=== PATIENT | female | born 1985 | race Asian ===

== ENCOUNTER → 2021-12-05 13:34 | Outpatient (BNVA) | payer OTHER, SELFPAY | PROVIDERS: Visit Provider Advanced Practice Midwife | DX: Z13.89 Encounter for screening for other disorder (principal) ==

== ENCOUNTER → 2022-01-03 10:10 | Outpatient (BNVA) | payer OTHER, SELFPAY | PROVIDERS: Visit Provider Surgery | DX: K64.9 Unspecified hemorrhoids (principal) | CPT/HCPCS: 46600 ==

== ENCOUNTER 2022-02-16 08:03 | Day surgery (SDC) | payer OTHER, SELFPAY ==
--- NOTE | 2022-02-15 09:15 | HO.ANESPROP2 ---
Documented by User: Coral Salazar NP 02/15/22 09:16 HPI - Anesthesia Eval Consult details Narrative: 37yo F for EUA,Hemorrhoidectomy PMFSH Active Problems Active Problems: All Active Problems (Updated 01/03/22 @ 10:56 by Antonio Buitrago MD) Bleeding hemorrhoids (Acute) Rectal bleeding (Acute) Hemorrhoids (Acute) Encounter for annual routine gynecological examination (Acute) Past Medical History Medical History Bleeding hemorrhoids Rectal bleeding Surgical History Surgical History (Updated 02/16/22 @ 09:09 by Renetta Cheney RN) [place] teeth extracted Social History Social History Alcohol intake: current Alcohol intake frequency: holidays/special occasions only Patient Tobacco Use Status: Never used Tobacco Advance Directives: No Advance Directives Information Provided: Yes Sexual orientation: Straight/Heterosexual Gender identity: Female Meds Allergies Allergy/AdvReac Type Severity Reaction Status Date / Time nickel [NICKEL] Allergy Unknown RASH Verified 02/16/22 08:34 Perineal suture Allergy Unknown infection Uncoded 02/16/22 08:34 vicrol suture Allergy Unknown infection Uncoded 02/16/22 08:34 Home Medications Medication Instructions Recorded Confirmed Last Taken Type multivitamin 1 tab PO DAILY 12/05/21 02/09/22 Unknown History Exam Exam Date and Time: February 15, 2022 0915 Assessment and Plan Assessment Anesthesia Assessment: Chart Reviewed Documented by User: Tutu Avila MD 02/16/22 10:04 PMFSH Past Medical History Medical History Bleeding hemorrhoids Rectal bleeding Patient : No Family History Family history of problems with anesthesia: No Surgical History Surgical History (Updated 02/16/22 @ 09:09 by Renetta Cheney RN) [place] teeth extracted History of Problems with Anesthesia: No Social History Social History Alcohol intake: current Alcohol intake frequency: holidays/special occasions only Patient Tobacco Use Status: Never used Tobacco Advance Directives: No Advance Directives Information Provided: Yes Sexual orientation: Straight/Heterosexual Gender identity: Female Meds Allergies Allergy/AdvReac Type Severity Reaction Status Date / Time nickel [NICKEL] Allergy Unknown RASH Verified 02/16/22 08:34 Perineal suture Allergy Unknown infection Uncoded 02/16/22 08:34 vicrol suture Allergy Unknown infection Uncoded 02/16/22 08:34 Home Medications Medication Instructions Recorded Confirmed Last Taken Type multivitamin 1 tab PO DAILY 12/05/21 02/09/22 Unknown History Exam Airway Mallampati Class: I TM Dist: >3cm Neck ROM: Full Loose/Missing/Broken Teeth: No Heart: ok Lungs: ok Assessment and Plan Final Anesthetic Review Family History of Problems with Anesthesia: No History of Problems with Anesthesia: No NPO: Yes ASA Class: I Final Preanesthetic Review: No Changes in Pt Med Stat, Meds/Allgs Chart Reviewed, Consent Obtained/Reviewed and Anes Risks/Benef Reviewed Patient Risk: Low Procedure Risk: Low Anesthetic Plan Anesthetic Plan: GA and Agree w/ Assess. and Plan Disposition: Standard PACU
[2022-02-16 08:33] VITALS: BMI 27.0
[2022-02-16 08:40] LABS: UPreg QC Valid YES; Urine Pregnancy NEGATIVE (NEGATIVE)
[2022-02-16 08:45] VITALS: BP 123/65; PULSE 86; RESP 18; TEMP 36.2; O2SAT 97
--- NOTE | 2022-02-16 08:50 | PC.NURSE ---
pt. stated returned from [facility] [address] dempsey. stated no covid swab needed. pt did not [place]
[2022-02-16] MEDS: Lactated Ringers 1,000 ML 100 ML IVCONT (08:51)
--- NOTE | 2022-02-16 09:51 | P.HPSUR_ITS ---
Pre-Procedural Eval Section A Date of Service: 02/16/22 Section B Chief Complaint: hemorrhoids Details of Present Illness: Has bleeding hemorrhoids, wants hemorrhoidectomy in view of symptoms Relevant Social History: None Present Medications: see Short Stay Collaborative assessment Medical History: No relevant PMH Allergies: Allergies Allergy/AdvReac Type Severity Reaction Status Date / Time nickel [NICKEL] Allergy Unknown RASH Verified 02/16/22 08:34 Perineal suture Allergy Unknown infection Uncoded 02/16/22 08:34 vicrol suture Allergy Unknown infection Uncoded 02/16/22 08:34 Review of Systems Sugical H&P ROS: Negative: Constitution, Cardiovascular, Respiratory, Neurologi ruslan, Psychiatric, Hem-Onc, Allergic/Immunologic, Gastrointestinal, Genitourinary, Musculoskeletal, Integumentary, Endocrine and Eyes/Ears/Nose/Throat Exam Surgical H&P Exam: Normal: HEENT, Normal: Heart, Normal: Lungs, Normal: Extremities, Normal: Abdomen, Normal: Skin and Normal: Neurological Plan Diagnosis/Plan: Unchanged I have reviewed the history and physical and performed a pertinent physical examination on my patient. No changes have occurred unless specified.
--- NOTE | 2022-02-16 11:16 | P.OP_ITS ---
Operative Note Operative Note Date of Service: 02/16/22 Narrative: Preop diagnosis: Bleeding hemorrhoids internal external Postop diagnosis: The same Procedure: Exam under anesthesia, hemorrhoidectomy x3 columns Surgeon: Antonio Buitrago MD Card Hanger: chris Barros student The patient is a 37-year-old female has had periodic bleeding per rectum her hemorrhoids. She was seen in the office and was noted to have fixed internal and external columns that were the likely source of her outlet bleeding. She understood technique of hemorrhoidectomy. She wanted to proceed He was brought the operating room. She was placed in prone arely-knife position under general anesthesia via laryngeal mask airway. The buttocks were retracted with wide tape laterally. The perianal area was prepped and draped in the usual sterile fashion. A surgical time-out was done. Perianal area was infiltrated with lidocaine 1% I inserted abuse Nichols retractor. I examined the anal canal circumferentially. There was note of a mixed hemorrhoidal column on the left, internal external that was moderate size. There were smaller hemorrhoidal columns on the left anterior as on the right lateral . I applied a Grider grasper at the hemorrhoidal column on the left and retracted this out into the field. I made a [id number] stitch at the pedicle was chromic 3-0. I made an incision around this hemorrhoidal column to the perianal skin using blade 15. And excised this column above the plane of sphincters using scissors. I closed the incision with a chromic 3-0 stitch in running fashion. Additional hemostatic [id number] sutures were placed . The same procedure was gated the smaller hemorrhoidal column on the right. Again I retracted this with the Grider grasper and made a figure stitch as the pedicle. I made an incision around this hemorrhoidal column to the perianal skin and excised this above the plane of sphincters. I closed this incision with a running chromic 3-0 stitch as well. A small hemorrhoidal column on the left which was also external, was also excised in the same manner I had to apply additional hemostatic sutures to achieve hemostasis. Once hemostasis was ensured, I proceeded to infiltrate the perianal area with Marcaine 0.75% for postop analgesia. There were no other lesions seen in the anal canal. The procedure was then completed . The patient tolerated procedure well. There were no complication noted. Initial final counts of sponges and instruments were correct. Estimated blood loss was about 25 cc. The patient was extubated without difficulty and transferred to the recovery room with stable vital signs.
[2022-02-16 11:33] VITALS: BP 119/77; PULSE 77; RESP 14; TEMP 36.8; O2SAT 98
[2022-02-16 11:38] VITALS: BP 116/72; PULSE 86; RESP 16; O2SAT 98
[2022-02-16 11:43] VITALS: BP 126/81; PULSE 74; RESP 16; O2SAT 98
[2022-02-16 11:48] VITALS: BP 119/72; PULSE 69; RESP 18; O2SAT 99
[2022-02-16] MEDS: oxyCODONE HCl Immed Release 5 MG TABLET PO (11:48)
[2022-02-16 12:03] VITALS: BP 122/77; PULSE 68; RESP 16; TEMP 37.1; O2SAT 99
== END 2022-02-16 12:52 | disposition home or self-care (01) ==
PROVIDERS: Nurse Practitioner; Visit Provider Surgery
PROC: (CPT 46260; principal; 2022-02-16 10:10)
DX: K64.8 Other hemorrhoids (principal); K64.4 Residual hemorrhoidal skin tags; K62.5 Hemorrhage of anus and rectum
CPT/HCPCS: 46260; 81025; 88304